=== PATIENT | female | born 1955 | race Caucasian/White ===

== ENCOUNTER 2022-07-26 12:14 | Emergency (ER) | payer OTHER ==
[~2022-07-26] VITALS: Ht 149.8 cm; Wt 108.9 kg
[~2022-07-26 12:14] MED LIST: 'XANAX0.5 MG PO; CELEXA40 MG PO; CLINDAMYCIN HC300 MG PO; COZAAR100 MG; DUONEB 3ML 3 MG/3 ML INH; FLEXERIL10 MG; FLOVENT0.22 MG/AC IH; HYDRODIURIL25 MG PO; JANUVIA100 MG PO; LOTRISONE 0.05%15 GM PO; METFORMIN500 MG PO; NAPROSYN375 MG PO; NEURONTIN300 MG PO; PRAVACHOL40 MG PO; PRILOSEC40 MG PO; PROAIR HFA0.09 MG/AC IH; SYNTHROID0.075 MG PO; VENTOLIN,PR2 MG/5 ML PO; VENTOLIN0.09 MG/AC IH
[2022-07-26] MEDS ORDERED: ONDANSETRON4 MG SL (16:45)
== END 2022-07-26 17:02 | disposition home or self-care (01) ==
LOC: ED 12:14
DX: B34.9 Viral infection, unspecified (principal); Z20.822 Contact with and (suspected) exposure to COVID-19

== ENCOUNTER → 2022-08-02 | Outpatient (CLI) | payer OTHER ==
[~2022-08-02] MED LIST changes: +ONDANSETRON4 MG SL
[2022-08-02 15:11] LABS: HEMATOCRIT 41.3 % (37.0-47.0); MEAN CORPUSCULAR HGB 28.2 pg (27.0-31.0); MEAN CORPUSCULAR HGB CONC 31.7 g/dl (33.0-37.0); MEAN PLATELET VOLUME 9.8 fl (9.6-12.3); RED BLOOD COUNT 4.64 10*6/uL (4.10-5.10); RED CELL DISTRI WIDTH 13.7 % (0-14.5); WHITE BLOOD COUNT 6.7 10*3/uL (4.8-10.8)
[2022-08-02 15:36] LABS: ALKALINE PHOSPHATASE 105 U/L (46-116); BUN 9 mg/dl (9-23); CHLORIDE 103 mmol/L (98-107); CHOLESTEROL 133 mg/dL (<200); FREE T4 1.18 ng/dl (0.89-1.76); LDL CHOLESTEROL 64 mg/dL (9-159); POTASSIUM 4.2 mmol/L (3.4-5.1); SGPT/ALT 12 U/L (10-49); THYROID STIM HORMONE (HS) 6.292 uIU/ml (0.550-4.780); TOTAL PROTEIN 6.9 gm/dL (6.0-8.0); TRIGLYCERIDES 164 mg/dl (<150)
[2022-08-02 15:47] LABS: VITAMIN D, 25-HYDROXY 25.5 ng/mL (30-100)
== END | disposition home or self-care (01) ==
LOC: LAB 14:45
PROVIDERS: ATTEND Family Medicine
DX: Z13.220 Encounter for screening for lipoid disorders (principal); E55.9 Vitamin D deficiency, unspecified; J44.9 Chronic obstructive pulmonary disease, unspecified; R06.02 Shortness of breath; R63.5 Abnormal weight gain

== ENCOUNTER 2024-08-23 20:13 | Inpatient (IN) | payer OTHER ==
[~2024-08-23] VITALS: Ht 150 cm; Wt 104.8 kg
[2024-08-23 20:45] VITALS: BP 120/58
[2024-08-23 21:32] LABS: BASO % 0.3 % (0.0-1.0); EOS # 0.3 10*3/uL (0.0-0.4); EOS % 2.6 % (1.0-4.0); HEMATOCRIT 35.5 % (37.0-47.0); MEAN CORPUSCULAR HGB 28.4 pg (27.0-31.0); MEAN CORPUSCULAR HGB CONC 32.7 g/dl (33.0-37.0); MEAN PLATELET VOLUME 10.2 fl (9.6-12.3); MONO # 0.8 10*3/uL (0.1-1.0); MONO % 7.2 % (3.0-9.0); NEUT # 8.4 10*3/uL (2.3-7.9); NEUT % 72.6 % (47.0-73.0); PLATELET COUNT AUTOMATED 226 10*3/uL (130-400); RED BLOOD COUNT 4.08 10*6/uL (4.10-5.10); WHITE BLOOD COUNT 11.6 10*3/uL (4.8-10.8)
[2024-08-23 21:51] LABS: BUN 16 mg/dl (9-23); CHLORIDE 99 mmol/L (98-107); POTASSIUM 3.4 mmol/L (3.4-5.1)
[2024-08-23] MEDS ORDERED: AZITHROMYCIN 250 ML IV ONE (22:05)
[2024-08-23] MEDS ORDERED: Ceftriaxone Sodium 1 GM/10 ML SYR IV ONE (22:05)
[2024-08-23] MEDS ORDERED: ACETAMINOPHEN 650 MG SUPP R PRN (22:20)
[2024-08-23] MEDS ORDERED: Acetaminophen/Hydrocodone 5 MG/325 MG TABLET PO PRN (22:20)
[2024-08-23] MEDS ORDERED: ACETAMINOPHEN 325 MG TAB PO PRN (22:20)
[2024-08-23] MEDS ORDERED: MORPHINE Sulfate 2 MG/ML SYR IV PRN (22:20)
[2024-08-23] MEDS ORDERED: BISACODYL 10 MG SUPP R PRN (22:20)
[2024-08-23] MEDS ORDERED: Ondansetron Hydrochloride 4 MG/2 ML VIAL IV PRN (22:20)
[2024-08-23] MEDS ORDERED: Magnesium Hydroxide 30 ML UDC PO PRN (22:20)
[2024-08-23] MEDS ORDERED: TEMAZEPAM 15 MG CAP PO PRN (22:20)
[2024-08-23] MEDS ORDERED: BISACODYL 5 MG TAB PO PRN (22:20)
[2024-08-23] MEDS ORDERED: Albuterol Sulf/Ipratropium 3 ML VIAL NEB SCH (22:25)
[2024-08-23 23:39] VITALS: BP 98/60
[2024-08-24 00:52] VITALS: BP 125/46
[2024-08-24] MEDS ORDERED: TRULICITY1.5 MG/0.5 SQ (01:38)
[2024-08-24 05:35] LABS: ALKALINE PHOSPHATASE 76 U/L (46-116); BUN 14 mg/dl (9-23); CHLORIDE 102 mmol/L (98-107); CHOLESTEROL 113 mg/dL (<200); FREE T4 1.56 ng/dl (0.89-1.76); LDL CHOLESTEROL 58 mg/dL (9-159); POTASSIUM 3.4 mmol/L (3.4-5.1); SGPT/ALT 9 U/L (5-49); TOTAL PROTEIN 5.6 gm/dL (6.0-8.0); TRIGLYCERIDES 93 mg/dl (<150)
[2024-08-24 06:12] LABS: BASO % 0.3 % (0.0-1.0); EOS # 0.3 10*3/uL (0.0-0.4); EOS % 2.6 % (1.0-4.0); HEMATOCRIT 36.2 % (37.0-47.0); MEAN CELL VOLUME 88.9 fl (81.0-99.0); MEAN CORPUSCULAR HGB 28.3 pg (27.0-31.0); MEAN CORPUSCULAR HGB CONC 31.8 g/dl (33.0-37.0); MEAN PLATELET VOLUME 10.3 fl (9.6-12.3); MONO # 0.9 10*3/uL (0.1-1.0); MONO % 8.7 % (3.0-9.0); NEUT # 6.9 10*3/uL (2.3-7.9); NEUT % 66.9 % (47.0-73.0); PLATELET COUNT AUTOMATED 232 10*3/uL (130-400); RED BLOOD COUNT 4.07 10*6/uL (4.10-5.10); RED CELL DISTRI WIDTH 13.9 % (0-14.5); WHITE BLOOD COUNT 10.3 10*3/uL (4.8-10.8)
[2024-08-24 06:41] LABS: ACT PARTIAL THROMBO TIME 27.3 SECONDS (20.0-32.1)
[2024-08-24 08:00] VITALS: BP 106/42
[2024-08-24] MEDS ORDERED: Enoxaparin Sodium 40 MG/0.4 ML SYR SC SCH (10:00)
[2024-08-24] MEDS ORDERED: GUAIFENESIN 600 MG TAB ER PO SCH (10:00)
[2024-08-24 12:00] VITALS: BP 110/42
[2024-08-24 13:59] LABS: VITAMIN D, 25-HYDROXY 33.8 ng/mL (30-100)
[2024-08-24] MEDS ORDERED: BUDESONIDE 0.5 MG AMP NEB SCH (15:10)
[2024-08-24 16:00] VITALS: BP 124/42; BP 126/36
[2024-08-24 20:00] VITALS: BP 135/53
[2024-08-24] MEDS ORDERED: AZITHROMYCIN 250 ML IV SCH (21:00)
[2024-08-24] MEDS ORDERED: Ceftriaxone Sodium 1 GM in SYRINGE INFUSION 10 ML IV SCH (22:00)
[2024-08-24] MEDS ORDERED: FLUTICASONE PROPIONATE INH SCH (22:00)
[2024-08-24] MEDS ORDERED: SALMETEROL INH SCH (22:00)
[2024-08-25] VITALS: BP 114/68
[2024-08-25] MEDS ORDERED: OMEPRAZOLE 20 MG CAP PO SCH (06:00)
[2024-08-25] MEDS ORDERED: Levothyroxine Sodium 75 MCG TAB PO SCH (06:00)
[2024-08-25 06:23] LABS: BASO % 0.3 % (0.0-1.0); EOS # 0.3 10*3/uL (0.0-0.4); EOS % 3.8 % (1.0-4.0); MEAN CELL VOLUME 87.9 fl (81.0-99.0); MEAN CORPUSCULAR HGB 28.7 pg (27.0-31.0); MEAN CORPUSCULAR HGB CONC 32.6 g/dl (33.0-37.0); MEAN PLATELET VOLUME 9.9 fl (9.6-12.3); MONO # 0.8 10*3/uL (0.1-1.0); MONO % 9.4 % (3.0-9.0); NEUT % 70.1 % (47.0-73.0); PLATELET COUNT AUTOMATED 192 10*3/uL (130-400); RED BLOOD COUNT 3.87 10*6/uL (4.10-5.10); RED CELL DISTRI WIDTH 14.2 % (0-14.5); WHITE BLOOD COUNT 8.6 10*3/uL (4.8-10.8)
[2024-08-25 07:17] LABS: BUN 8 mg/dl (9-23); CHLORIDE 103 mmol/L (98-107)
[2024-08-25 08:00] VITALS: BP 115/48
[2024-08-25 09:00] VITALS: BP 170/58
[2024-08-25] MEDS ORDERED: CITALOPRAM 20 MG TAB PO SCH (10:00)
[2024-08-25] MEDS ORDERED: ATORVASTATIN CALCIUM 10 MG TAB PO SCH (10:00)
[2024-08-25] MEDS ORDERED: HYDROCHLOROTHIAZIDE 25 MG TAB PO SCH (10:00)
[2024-08-25 12:00] VITALS: BP 142/90
[2024-08-25] MEDS ORDERED: BREO ELLIPTA 21 EACH PO (12:51)
[2024-08-25] MEDS ORDERED: PREDNISONE10 MG PO (12:51)
[2024-08-25] MEDS ORDERED: ZITHROMAX250 MG PO (12:51)
== END 2024-08-25 14:54 | disposition home or self-care (01) | DRG 139 ==
LOC: ED 20:13 → EDHOLD 22:08 → 4E 08-24 00:29
PROVIDERS: Nurse Practitioner Family; Student in an Organized Health Care Education/Training Program; ADMIT Internal Medicine; ATTEND Internal Medicine
DX: J18.9 Pneumonia, unspecified organism (principal); I10 Essential (primary) hypertension; K21.9 Gastro-esophageal reflux disease without esophagitis; E03.9 Hypothyroidism, unspecified; D72.829 Elevated white blood cell count, unspecified; B34.9 Viral infection, unspecified; D64.9 Anemia, unspecified; E11.65 Type 2 diabetes mellitus with hyperglycemia; E66.01 Morbid (severe) obesity due to excess calories; J45.40 Moderate persistent asthma, uncomplicated; F33.42 Major depressive disorder, recurrent, in full remission; J40 Bronchitis, not specified as acute or chronic; Z68.42 Body mass index [BMI] 45.0-49.9, adult; Z79.899 Other long term (current) drug therapy; Z79.01 Long term (current) use of anticoagulants; Z79.2 Long term (current) use of antibiotics; Z82.49 Family history of ischemic heart disease and other diseases of the circulatory system; Z81.8 Family history of other mental and behavioral disorders; Z78.9 Other specified health status

== ENCOUNTER 2024-10-03 08:03 | Emergency (ER) | payer OTHER ==
[~2024-10-03] VITALS: Ht 165.1 cm; Wt 110.2 kg
[~2024-10-03 08:03] MED LIST changes: +BREO ELLIPTA 21 EACH PO; +PREDNISONE10 MG PO; +TRULICITY1.5 MG/0.5 SQ; +ZITHROMAX250 MG PO
[2024-10-03] MEDS ORDERED: traMADol Hydrochloride 50 MG TAB PO ONE (09:30)
== END 2024-10-03 09:40 | disposition home or self-care (01) ==
LOC: ED 08:03
DX: Z79.4 Long term (current) use of insulin (principal); Z79.84 Long term (current) use of oral hypoglycemic drugs; R51.9 Headache, unspecified; V89.2XXA Person injured in unspecified motor-vehicle accident, traffic, initial encounter; Y93.I9 Activity, other involving external motion; Y92.488 Other paved roadways as the place of occurrence of the external cause; Y99.8 Other external cause status

== ENCOUNTER → 2025-01-28 | Outpatient (CLI) | payer OTHER ==
[2025-01-28 10:24] LABS: BASO # 0.1 10*3/uL (0.0-0.1); BASO % 0.9 % (0.0-1.0); EOS # 0.4 10*3/uL (0.0-0.4); EOS % 5.7 % (1.0-4.0); MEAN CELL VOLUME 86.6 fl (81.0-99.0); MEAN CORPUSCULAR HGB 28.0 pg (27.0-31.0); MEAN PLATELET VOLUME 10.0 fl (9.6-12.3); MONO # 0.6 10*3/uL (0.1-1.0); MONO % 9.8 % (3.0-9.0); NEUT # 4.1 10*3/uL (2.3-7.9); NEUT % 63.0 % (47.0-73.0); NUCLEATED RED BLOOD CELL 0.0 % (0.0-0.0); NUCLEATED RED BLOOD CELL 0.0 10*3/uL (0.0-0.0); PLATELET COUNT AUTOMATED 257 10*3/uL (130-400); RED CELL DISTRI WIDTH 13.9 % (0-14.5)
[2025-01-28 10:43] LABS: BUN 15 mg/dl (9-23); LDL CHOLESTEROL 123 mg/dL (9-159); SGPT/ALT 14 U/L (5-49)
[2025-01-28 11:02] LABS: FREE T4 1.13 ng/dl (0.89-1.76)
== END | disposition home or self-care (01) ==
LOC: RESCLI 07:48
PROVIDERS: Student in an Organized Health Care Education/Training Program; ATTEND Student in an Organized Health Care Education/Training Program
DX: M79.605 Pain in left leg (principal); E11.9 Type 2 diabetes mellitus without complications; E03.9 Hypothyroidism, unspecified; K21.9 Gastro-esophageal reflux disease without esophagitis; E78.5 Hyperlipidemia, unspecified; F41.1 Generalized anxiety disorder; F32.9 Major depressive disorder, single episode, unspecified; I10 Essential (primary) hypertension; J44.9 Chronic obstructive pulmonary disease, unspecified; G47.30 Sleep apnea, unspecified; Z79.899 Other long term (current) drug therapy; Z98.890 Other specified postprocedural states

== ENCOUNTER 2025-06-07 16:04 | Inpatient (IN) | payer OTHER ==
[2025-06-07] VITALS: BP 162/62; BP 165/61
[~2025-06-07] VITALS: Ht 149.8 cm; Wt 108.0 kg
[~2025-06-07 16:04] MED LIST changes: -SYNTHROID0.075 MG PO; +Synthroid,Lev100 MCG PO
[2025-06-07 16:15] VITALS: BP 179/100
[2025-06-07 17:59] LABS: BASO # 0.0 10*3/uL (0.0-0.1); BASO % 0.4 % (0.0-1.0); EOS # 0.4 10*3/uL (0.0-0.4); EOS % 5.2 % (1.0-4.0); MEAN CELL VOLUME 90.7 fl (81.0-99.0); MEAN CORPUSCULAR HGB 29.5 pg (27.0-31.0); MEAN PLATELET VOLUME 9.3 fl (9.6-12.3); MONO # 0.7 10*3/uL (0.1-1.0); MONO % 8.5 % (3.0-9.0); NEUT # 5.3 10*3/uL (2.3-7.9); NEUT % 64.8 % (47.0-73.0); NUCLEATED RED BLOOD CELL 0.0 % (0.0-0.0); NUCLEATED RED BLOOD CELL 0.0 10*3/uL (0.0-0.0); PLATELET COUNT AUTOMATED 281 10*3/uL (130-400); RED CELL DISTRI WIDTH 12.8 % (0-14.5)
[2025-06-07 18:18] LABS: BUN 12 mg/dl (9-23); SGPT/ALT 11 U/L (5-49)
[2025-06-07 19:19] LABS: BILIRUBIN Negative (Negative); BLOOD Negative (Negative); CLARITY Clear (Clear); COLOR Yellow (Yellow); KETONE Negative (Negative); LEUKO ESTERASE 1+ (Negative); NITRITE Negative (Negative); PH 6.5 (4.5-8.0); SPECIFIC GRAVITY 1.010 (1.001-1.030); UROBILINOGEN 0.2 E.U./dl (0.0-1.0)
[2025-06-07 19:26] LABS: BACTERIA 1+; WBC 16-20 wbc/hpf (0-5)
[2025-06-07] MEDS ORDERED: DEXTROSE 50% 25 GM/50 ML VIAL IV PRN (20:20)
[2025-06-07] MEDS ORDERED: Acetaminophen/Hydrocodone 5 MG/325 MG TABLET PO PRN (20:20)
[2025-06-07] MEDS ORDERED: LOSARTAN POTAS100 M1 PO (20:53)
[2025-06-07] MEDS ORDERED: INSULIN LISPRO 1 UNIT/0.01 ML SQ SCH (22:00)
[2025-06-07 22:29] VITALS: BP 162/62
[2025-06-08 04:00] VITALS: BP 163/67
[2025-06-08] MEDS ORDERED: hydroCHLOROthiazide 25 MG TAB PO SCH (04:35)
[2025-06-08 05:14] LABS: BUN 15 mg/dl (9-23)
[2025-06-08 05:38] LABS: VITAMIN D, 25-HYDROXY 36.8 ng/mL (30-100)
[2025-06-08 06:12] LABS: BASO # 0.0 10*3/uL (0.0-0.1); BASO % 0.2 % (0.0-1.0); EOS # 0.0 10*3/uL (0.0-0.4); EOS % 0.0 % (1.0-4.0); MEAN CELL VOLUME 89.6 fl (81.0-99.0); MEAN CORPUSCULAR HGB 29.9 pg (27.0-31.0); MEAN PLATELET VOLUME 10.0 fl (9.6-12.3); MONO # 0.1 10*3/uL (0.1-1.0); MONO % 0.8 % (3.0-9.0); NEUT # 5.9 10*3/uL (2.3-7.9); NEUT % 88.9 % (47.0-73.0); NUCLEATED RED BLOOD CELL 0.0 % (0.0-0.0); NUCLEATED RED BLOOD CELL 0.0 10*3/uL (0.0-0.0); PLATELET COUNT AUTOMATED 302 10*3/uL (130-400); RED CELL DISTRI WIDTH 12.6 % (0-14.5)
[2025-06-08] MEDS ORDERED: hydroCHLOROthiazide 25 MG TAB PO ONE (06:20)
[2025-06-08 08:00] VITALS: BP 153/74
[2025-06-08] MEDS ORDERED: Cyclobenzaprine Hydrochlorid 10 MG TAB PO SCH (10:00)
[2025-06-08 12:00] VITALS: BP 165/67
[2025-06-08 16:00] VITALS: BP 159/66
[2025-06-08 20:00] VITALS: BP 142/62
[2025-06-09] VITALS: BP 164/74
[2025-06-09 04:00] VITALS: BP 137/66
[2025-06-09 06:02] LABS: BUN 19 mg/dl (9-23)
[2025-06-09 06:17] LABS: BASO # 0.0 10*3/uL (0.0-0.1); BASO % 0.1 % (0.0-1.0); EOS # 0.0 10*3/uL (0.0-0.4); EOS % 0.0 % (1.0-4.0); MEAN CELL VOLUME 90.2 fl (81.0-99.0); MEAN CORPUSCULAR HGB 29.6 pg (27.0-31.0); MEAN PLATELET VOLUME 10.0 fl (9.6-12.3); MONO # 0.5 10*3/uL (0.1-1.0); MONO % 3.4 % (3.0-9.0); NEUT # 11.8 10*3/uL (2.3-7.9); NEUT % 88.7 % (47.0-73.0); NUCLEATED RED BLOOD CELL 0.0 % (0.0-0.0); NUCLEATED RED BLOOD CELL 0.0 10*3/uL (0.0-0.0); PLATELET COUNT AUTOMATED 344 10*3/uL (130-400); RED CELL DISTRI WIDTH 12.9 % (0-14.5)
[2025-06-09 08:00] VITALS: BP 143/63
[2025-06-09] MEDS ORDERED: SIMVASTATIN 20 MG TAB PO SCH (10:00)
[2025-06-09] MEDS ORDERED: OMEPRAZOLE 20 MG CAP PO SCH (10:00)
[2025-06-09] MEDS ORDERED: CITALOPRAM 20 MG TAB PO SCH (10:00)
[2025-06-09] MEDS ORDERED: OMEPRAZOLE 20 MG CAP PO ONE (11:08)
[2025-06-09] MEDS ORDERED: CITALOPRAM 20 MG TAB ONE (11:10)
[2025-06-09] MEDS ORDERED: hydroCHLOROthiazide 25 MG TAB PO ONE (11:10)
[2025-06-09] MEDS ORDERED: SIMVASTATIN 20 MG TAB PO ONE (11:10)
[2025-06-09] MEDS ORDERED: Cyclobenzaprine Hydrochlorid 10 MG TAB ONE (11:11)
[2025-06-09 12:00] VITALS: BP 145/64
[2025-06-09 16:00] VITALS: BP 167/72
[2025-06-09 20:00] VITALS: BP 145/56
[2025-06-10] VITALS: BP 158/64
[2025-06-10 07:48] VITALS: BP 154/55
[2025-06-10] MEDS ORDERED: CYCLOBENZAPRINE10 MG PO (08:43)
[2025-06-10] MEDS ORDERED: PREDNISONE20 M1 PO (08:49)
[2025-06-10 12:00] VITALS: BP 158/62
== END 2025-06-10 12:50 | disposition home or self-care (01) | DRG 347 ==
LOC: ED 16:04 → ICCU 19:52 → EDHOLD 19:52 → ICCU 23:00 → 4E 06-09 17:14
PROVIDERS: Nurse Practitioner; Student in an Organized Health Care Education/Training Program; ADMIT Internal Medicine; ATTEND Internal Medicine
DX: M51.362 Other intervertebral disc degeneration, lumbar region with discogenic back pain and lower extremity pain (principal); M47.816 Spondylosis without myelopathy or radiculopathy, lumbar region; M43.9 Deforming dorsopathy, unspecified; J44.89 Other specified chronic obstructive pulmonary disease; E03.9 Hypothyroidism, unspecified; E66.9 Obesity, unspecified; E11.65 Type 2 diabetes mellitus with hyperglycemia; D64.9 Anemia, unspecified; D86.9 Sarcoidosis, unspecified; F32.9 Major depressive disorder, single episode, unspecified; K21.9 Gastro-esophageal reflux disease without esophagitis; R29.6 Repeated falls; Z79.899 Other long term (current) drug therapy; Z79.01 Long term (current) use of anticoagulants; Z79.2 Long term (current) use of antibiotics; Z82.49 Family history of ischemic heart disease and other diseases of the circulatory system; Z81.8 Family history of other mental and behavioral disorders; Z68.42 Body mass index [BMI] 45.0-49.9, adult

== ENCOUNTER → 2025-06-23 | Outpatient (CLI) | payer OTHER ==
[~2025-06-23] MED LIST changes: +CYCLOBENZAPRINE10 MG PO; +LOSARTAN POTAS100 M1 PO; +PREDNISONE20 M1 PO
== END | disposition home or self-care (01) ==
LOC: RESCLI 12:01
PROVIDERS: ATTEND Internal Medicine
DX: E11.9 Type 2 diabetes mellitus without complications (principal); E03.9 Hypothyroidism, unspecified; K21.9 Gastro-esophageal reflux disease without esophagitis; F41.1 Generalized anxiety disorder; E78.5 Hyperlipidemia, unspecified; I10 Essential (primary) hypertension; J44.9 Chronic obstructive pulmonary disease, unspecified; F32.9 Major depressive disorder, single episode, unspecified; G47.30 Sleep apnea, unspecified; J06.9 Acute upper respiratory infection, unspecified; R53.83 Other fatigue; Z79.899 Other long term (current) drug therapy; Z98.890 Other specified postprocedural states

== ENCOUNTER → 2025-06-27 | Outpatient (CLI) | payer OTHER ==
[2025-06-27 11:07] LABS: BASO # 0.0 10*3/uL (0.0-0.1); BASO % 0.3 % (0.0-1.0); EOS # 0.4 10*3/uL (0.0-0.4); EOS % 3.3 % (1.0-4.0); MEAN CELL VOLUME 89.8 fl (81.0-99.0); MEAN CORPUSCULAR HGB 29.2 pg (27.0-31.0); MEAN PLATELET VOLUME 9.2 fl (9.6-12.3); MONO # 0.9 10*3/uL (0.1-1.0); MONO % 8.5 % (3.0-9.0); NEUT # 7.3 10*3/uL (2.3-7.9); NEUT % 68.4 % (47.0-73.0); NUCLEATED RED BLOOD CELL 0.0 % (0.0-0.0); NUCLEATED RED BLOOD CELL 0.0 10*3/uL (0.0-0.0); PLATELET COUNT AUTOMATED 261 10*3/uL (130-400); RED CELL DISTRI WIDTH 13.5 % (0-14.5)
[2025-06-27 11:36] LABS: BUN 17 mg/dl (9-23); LDL CHOLESTEROL 108 mg/dL (9-159)
== END | disposition home or self-care (01) ==
LOC: LAB 09:51
PROVIDERS: Student in an Organized Health Care Education/Training Program; ATTEND Family Medicine
DX: I10 Essential (primary) hypertension (principal); E11.9 Type 2 diabetes mellitus without complications; E03.9 Hypothyroidism, unspecified; E78.5 Hyperlipidemia, unspecified; R53.83 Other fatigue